=== PATIENT | male | born 1950 | race Caucasian/White ===

== ENCOUNTER 2017-12-13 13:47 | Emergency (ER) | payer MEDICARE, OTHER ==
[~2017-12-13] VITALS: Ht 185.4 cm; Wt 77.1 kg
[2017-12-13 13:58] VITALS: BP 132/77
[2017-12-13] MEDS ORDERED: NKM (14:03)
--- NOTE | 2017-12-13 14:35 | Emergency Room Report ---
History of Present Illness General Chief Complaint: Skin Rash/Abscess Source: Patient Present Illness HPI 67-year-old male presents to the emergency department complaining of mildly itchy rash that is 6 out of 10 in severity pain/itching to the dorsum of the left hand as well as the posterior neck 3 days. Pt. denies fevers, chills or swollen tender lymph nodes. Denies lesions/rashes elsewhere on the body. Denies new medications or body washes or creams. Denies swelling of the lips, tongue , throat or airway. Denies wheezing, or shortness of breath. Denies recent travel , recent illness or ill contacts. denies blisters, oral lesions, or sloughing of the skin. Pt not sure when his last tdap was. Allergies: Coded Allergies: No Known Allergies (Unverified , 12/13/17) Patient History Past Medical History: see triage record Past Surgical History: none Pertinent Family History: none Reviewed Nursing Documentation: PMH: Agreed; PSxH: Agreed Nursing Documentation-PMH Past Medical History: No History, Except For Hx Gastrointestinal Problems: Yes - hepatitis C Review of Systems All Other Systems: negative except mentioned in HPI Physical Exam Vital Signs Date Time Temp Pulse Resp B/P (MAP) Pulse Ox O2 Delivery O2 Flow Rate FiO2 12/13/17 13:58 98.4 68 14 132/77 94 Room Air Sp02 EP Interpretation: reviewed, normal General Appearance: no apparent distress, alert, GCS 15, non-toxic Head: normocephalic, atraumatic Eyes: bilateral eye normal inspection, bilateral eye PERRL ENT: hearing grossly normal, no angioedema, normal voice Neck: full range of motion Respiratory: chest non-tender, lungs clear, normal breath sounds, no respiratory distress, no wheezing, speaking full sentences Cardiovascular #1: regular rate, rhythm, normal capillary refill Musculoskeletal: back normal, gait/station normal, normal range of motion, non- tender Neurologic: alert, oriented x3, responsive, motor strength/tone normal, sensory intact, speech normal, grossly normal Psychiatric: judgement/insight normal Skin: normal color, warm/dry, well hydrated, rash - dry scaly plaques with surrounding erythema to the dorsum of the left hand and posterior neck left side. no vessicles or blisters. no d/c noted, some tenderness, sizes are approx 1 cm each there are a total of 3. Lymphatic: no adenopathy Medical Decision Making PA Attestation Dr. Tejada is my supervising Physician whom patient management has been discussed with. Diagnostic Impression: Primary Impression: Rash and other nonspecific skin eruption ER Course 67-year-old male presents to the emergency department complaining of mildly itchy rash that is 6 out of 10 in severity pain/itching to the dorsum of the left hand as well as the posterior neck 3 days. Pt. denies fevers, chills or swollen tender lymph nodes. Denies lesions/rashes elsewhere on the body. Denies new medications or body washes or creams. Denies swelling of the lips, tongue , throat or airway. Denies wheezing, or shortness of breath. Denies recent travel , recent illness or ill contacts. denies blisters, oral lesions, or sloughing of the skin. Pt not sure when his last tdap was. Ddx considered but are not limited to cellulitis, scabies, shingles, varicella, dermatitis, urticaria, eczema, tinea, viral exanthem, SJS Vital signs: are WNL, pt. is afebrile H&PE are most consistent with unspecified dermatitis, suspected mild secondary cellulitis will treat. ORDERS: none required at this time, the diagnosis is clinical ED INTERVENTIONS: -Tdap vaccination is administered by RN - Lidocaine 1% cream is applied to left hand lesion. DISCHARGE: At this time pt. is stable for d/c to home. Will provide printed patient care instructions, and any necessary prescriptions. Care plan and follow up instructions have been discussed with the patient prior to discharge. Last Vital Signs Date Time Temp Pulse Resp B/P (MAP) Pulse Ox O2 Delivery O2 Flow Rate FiO2 12/13/17 13:58 98.4 68 14 132/77 94 Room Air Disposition: HOME, SELF-CARE Condition: Stable Scripts Cephalexin* (KEFLEX*) 500 Mg Capsule 500 MG ORAL EVERY 12 HOURS for 7 Days, #14 CAP 0 Refills Prov: Imani Orona 12/13/17 Triamcinolone Acet (Triamcinolone Acetonide) 15 Gm Cream..g. 15 GM APPLIC BID, #15 GM Prov: Imani Orona 12/13/17 Patient Instructions: Rash Additional Instructions: Take medications as directed. Follow up with a Primary Care Provider in 3-5 days for DERMATOLOGY REFERRAL , even if your symptoms have resolved. --Please review list of primary care clinics, if you do not already have a primary care provider Return sooner to ED if new symptoms occur, or current symptoms become worse. - Please note that this Emergency Department Report was dictated using [email or web address] lab technician technology software, occasionally this can lead to erroneous entry secondary to interpretation by the dictation equipment. Imani Orona Dec 13, 2017 14:35
[2017-12-13] MEDS ORDERED: CEPHALEXIN500 MG ORAL (14:38)
[2017-12-13] MEDS ORDERED: KENALOG 0.5% CR15 GM APPLIC (14:38)
[2017-12-13 14:45] VITALS: BP 132/77
[2017-12-13] MEDS ORDERED: Tetanus/Diptheria/Pertussis Vaccine 0.5ml Syr IM ONE (14:45)
== END 2017-12-13 14:45 | disposition home or self-care (01) ==
LOC: EMR 14:25
DX: R21 Rash and other nonspecific skin eruption (principal); Z23 Encounter for immunization; B19.20 Unspecified viral hepatitis C without hepatic coma
CPT/HCPCS: 90471; 90715; 99283

== ENCOUNTER 2018-06-17 09:04 | Emergency (ER) | payer MEDICARE, OTHER ==
[~2018-06-17] VITALS: Ht 188 cm; Wt 81.6 kg
[~2018-06-17 09:04] MED LIST: CEPHALEXIN500 MG ORAL; KENALOG 0.5% CR15 GM APPLIC; NKM
[2018-06-17 09:14] VITALS: BP 130/79
--- NOTE | 2018-06-17 09:15 | NUR ---
ED Nurse Note: Patient walked in to ER complaining of having feeling of insect in Rt ear. Patient is alert and fully oriented and steady gait with a cane. Skin clean and intact. Patient denied pain on Rt ear. Rt ear has no drainage, edema, redness noted. Rt ear was assessed with otoscopy and ear wax noted but no living insect noted. Patient is calm and cooperative.
[2018-06-17] MEDS ORDERED: Hydrogen Peroxide 473ml Bottle TOPIC ONE ×2 (09:37→09:45)
[2018-06-17 10:50] VITALS: BP 128/74
--- NOTE | 2018-06-17 11:29 | NUR ---
ER DISCHARGE NOTE: Patient is cleared to be discharged per ERMD after removing an object from Rt ear, pt is aox4, on room air, with stable vital signs. pt was given dc instructions and leftover hydrogen peroxide, pt was able to verbalize understanding, pt id band removed. pt is able to ambulate with steady gait with a cane that he brought in. pt took all belongings.
--- NOTE | 2018-06-17 14:25 | Emergency Room Report ---
History of Present Illness General Chief Complaint: Foreign Body Source: Patient Present Illness HPI Patient presents with complaints of sensation of foreign body in the right ear This happened early in the morning Patient reports that he had felt something moving however has not felt anything over the past one hour Denies any change with hearing denies any chest pain denies any shortness of breath denies any dizziness Allergies: Coded Allergies: No Known Allergies (Unverified , 12/13/17) Patient History Past Medical History: see triage record Pertinent Family History: none Reviewed Nursing Documentation: PMH: Agreed; PSxH: Agreed Nursing Documentation-PMH Past Medical History: No History, Except For Hx Gastrointestinal Problems: Yes - hepatitis C Review of Systems All Other Systems: negative except mentioned in HPI Physical Exam Vital Signs Date Time Temp Pulse Resp B/P (MAP) Pulse Ox O2 Delivery O2 Flow Rate FiO2 06/17/18 09:06 98.2 62 21 95 Room Air 06/17/18 09:14 130/79 Sp02 EP Interpretation: reviewed, normal General Appearance: well appearing, no apparent distress Head: normocephalic, atraumatic ENT: other - Evidence of insect right tympanic membrane, is not moving, canal is otherwise appropriate and no obvious perforation Neck: supple Respiratory: lungs clear, no retraction Cardiovascular #1: regular rate, rhythm Gastrointestinal: non tender, soft Musculoskeletal: normal inspection Neurologic: alert, oriented x3 Skin: normal color, no rash Lymphatic: no adenopathy Medical Decision Making Diagnostic Impression: Primary Impression: foreign body removal ER Course After initial evaluation I did place hydroperoxide in the ear After cleansing the ear with the peroxide did have evidence of the insect that had been wiped off with the cleansing, prior to this initial attempt with prongs were made to remove the insect however was unsuccessful. Reevaluation reveals no evidence of trauma tympanic membrane intact after this patient is stable for close follow-up Last Vital Signs Date Time Temp Pulse Resp B/P (MAP) Pulse Ox O2 Delivery O2 Flow Rate FiO2 06/17/18 10:50 97.9 76 19 128/74 98 Room Air Status: improved Disposition: HOME, SELF-CARE Condition: Improved Referrals: NOT CHOSEN [facility]/MD,REFERRING (PCP) Patient Instructions: Ear Foreign Body Additional Instructions: Patient is provided with the discharge instructions notified to follow up with primary doctor in the next 2-3 days otherwise return to the er with any worsening symptoms. Please note that this report is being documented using [employer] technology. This can lead to erroneous entry secondary to incorrect interpretation by the dictating instrument. Misty Perkins DO June 17, 2018 14:25
== END 2018-06-17 10:50 | disposition home or self-care (01) ==
LOC: EMR 09:29
DX: T16.1XXA Foreign body in right ear, initial encounter (principal); X58.XXXA Exposure to other specified factors, initial encounter; Y92.9 Unspecified place or not applicable; Z86.19 Personal history of other infectious and parasitic diseases
CPT/HCPCS: 99282